=== PATIENT | female | born 1955 | race Caucasian/White ===

== ENCOUNTER 2020-01-04 15:23 | Emergency (ER) | payer SELFPAY ==
[~2020-01-04] VITALS: Ht 170.2 cm; Wt 124.5 kg
[2020-01-04] MEDS ORDERED: IBUPROFEN400 M1 PO (15:32)
[2020-01-04 20:22] VITALS: BP 159/93
== END 2020-01-04 20:22 | disposition short-term general hospital (02) ==
LOC: ED 15:23
DX: S82.141A Displaced bicondylar fracture of right tibia, initial encounter for closed fracture (principal); S01.81XA Laceration without foreign body of other part of head, initial encounter; V89.2XXA Person injured in unspecified motor-vehicle accident, traffic, initial encounter
CPT/HCPCS: 90715

== ENCOUNTER 2020-04-29 08:30 | Outpatient (RCR) | payer MEDICARE ==
[~2020-04-29 08:30] MED LIST: IBUPROFEN400 M1 PO
== END 2020-04-29 09:00 | disposition still patient (30) ==
LOC: PT 08:30
DX: S82.141D Displaced bicondylar fracture of right tibia, subsequent encounter for closed fracture with routine healing (principal)

== ENCOUNTER 2020-07-13 08:30 | Outpatient (RCR) | payer MEDICARE | END 2020-08-05 | disposition home or self-care (01) | LOC: PT | DX: S82.141D Displaced bicondylar fracture of right tibia, subsequent encounter for closed fracture with routine healing (principal) ==

== ENCOUNTER 2020-11-17 09:00 | Outpatient (RCR) | payer MEDICARE | END 2021-02-15 | disposition home or self-care (01) | LOC: PT | DX: S82.141A Displaced bicondylar fracture of right tibia, initial encounter for closed fracture (principal); Z98.890 Other specified postprocedural states ==

== ENCOUNTER → 2022-09-27 | Outpatient (CLI) | payer MEDICARE, MEDICAID ==
[2022-09-27 15:18] LABS: BASO # 0.02 K/mm3 (0.02-0.10); EOS # 0.09 K/mm3 (0.04-0.40); EOS % 1.1 % (1.0-5.0); HEMATOCRIT 42.7 % (37.0-47.0); HEMOGLOBIN 13.8 g/dL (12.5-16.0); LYMPH# 1.57 K/mm3 (1.50-4.00); MEAN CELL VOLUME 88 fl (78-100); MEAN CORPUSCULAR HEMOGLOBIN 29 pg (27-31); MEAN CORPUSCULAR HGB CONC 32 g/dL (33-37); MEAN PLATELET VOLUME 10.5 fl (7.4-10.4); MONO # 0.53 K/mm3 (0.20-0.80); NEU # 6.19 K/mm3 (1.40-6.50); PLATELET COUNT 243 K/mm3 (130-400); RED BLOOD COUNT 4.85 M/mm3 (4.10-5.30); RED CELL DISTRIBUTION WIDTH 13.5 % (11.5-14.5); WHITE BLOOD COUNT 8.4 K/mm3 (4.8-10.8)
[2022-09-27 15:31] LABS: ALBUMIN 4.2 g/dL (3.4-4.8); POTASSIUM 4.2 mmol/L (3.5-5.1)
[2022-09-27 15:33] LABS: CALCIUM 9.8 mg/dL (8.3-10.5)
[2022-09-27 15:34] LABS: TOTAL PROTEIN 7.2 g/dL (6.2-8.1)
[2022-09-27 15:36] LABS: TOTAL BILIRUBIN 0.4 mg/dL (0.2-1.2)
== END ==
LOC: LAB 15:05
PROVIDERS: Family Medicine
DX: Z00.00 Encounter for general adult medical examination without abnormal findings (principal); Z12.39 Encounter for other screening for malignant neoplasm of breast; E55.9 Vitamin D deficiency, unspecified; E78.5 Hyperlipidemia, unspecified; E03.9 Hypothyroidism, unspecified; R07.9 Chest pain, unspecified; Z87.19 Personal history of other diseases of the digestive system